=== PATIENT | male | born 2000 | race Caucasian/White ===

== ENCOUNTER 2021-02-15 22:10 | Emergency (ER) | payer OTHER, SELFPAY ==
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
[2021-02-15 22:05] VITALS: BP 110/70; PULSE 101; RESP 16; TEMP 36.6; O2SAT 98; BMI 25.2
--- NOTE | 2021-02-15 22:08 | [facility].EDGENADL ---
ED Disposition Clinical Impression: Laceration Contusion of right knee Qualifiers: Encounter type: initial encounter Qualified Code(s): S80.01XA - Contusion of right knee, initial encounter Patellar tendon strain Qualifiers: Encounter type: initial encounter Laterality: right Qualified Code(s): S86.811A - Strain of other muscle(s) and tendon(s) at lower leg level, right leg, initial encounter Disposition: Home, Self-Care Condition on Discharge: Fair Instructions: Knee Sprain, DI for Knee Sprain, DI for Knee Pain Additional Instructions: You have been evaluated for traumatic right knee injury. Diagnosed with a partial patellar tendon rupture and a knee sprain. Keep knee wrapped for comfort. Use elevation. Tylenol and Motrin for pain. [place] for extreme pain. Use crutches if needed. Follow-up with your primary care doctor in 24 to 48 hours. Follow-up with an orthopedist. Have sutures removed in 7 to 10 days. Keep wound clean, dry, intact. You may shower in 24 hours. Return to the emergency department for any new or worsening symptoms Prescriptions: Hydrocod/Acet 5/325 mg [[place] 5/325mg tablet] 1 tab PO Q6HP PRN #12 tab PRN Reason: Severe Pain Transmission Status: Received by ALINA Lan Time of Disposition: 00:07 - Critical Care Critical Care Time: No Attestation: On , the high probability of a clinically significant, sudden or life threatening deterioration of the following system(s) required my full and direct attention, intervention and personal management. The time I documented below is in addition to time spent performing reported procedures but includes the following listed in this critical care notation. Medical Decision Making - Medical Records Medical records reviewed: Yes: I reviewed the patient's medical records. - [place] Inquiry Pt receiving controlled substance: No Vital Signs: 02/15/21 22:05 02/15/21 22:34 02/15/21 23:00 Temperature 97.8 F Temperature Source Oral Pulse Rate 91 H 84 Pulse Rate [Right Brachial] 101 H Respiratory Rate 16 20 20 Blood Pressure 117/62 101/60 L Blood Pressure [Right Arm] 110/70 Blood Pressure Mean 77 73 Blood Pressure Mean [Right Arm] 83 Blood Pressure Source [Right Arm] Automatic Cuff Blood Pressure Position [Right Arm] Sitting 02 Sat by Pulse Oximetry 98 99 98 Oxygen Delivery Method Room Air 02/15/21 23:30 Temperature Temperature Source Pulse Rate 77 Pulse Rate [Right Brachial] Respiratory Rate 20 Blood Pressure 122/60 Blood Pressure [Right Arm] Blood Pressure Mean 76 Blood Pressure Mean [Right Arm] Blood Pressure Source [Right Arm] Blood Pressure Position [Right Arm] 02 Sat by Pulse Oximetry 96 Oxygen Delivery Method Orders (Tests/Meds): ED MEDICATIONS Discontinued Medications Generic Name Dose Route Start Last Admin Trade Name Claudia PRN Reason Stop Dose Admin Hydrocodone Bitart/Acetaminophen 1 tab 02/15/21 22:12 02/15/21 22:27 Hydrocodone/Apap 5/325 Mg Tablet PO 02/15/21 22:13 1 tab ONCE ONE Administration Lidocaine HCl 5 ml 02/15/21 23:43 Lidocaine 1% 10ml Mdv SQ 02/15/21 23:44 ONCE ONE Tetanus/Reduced Diphtheria/Acell Pertussis 0.5 ml 02/15/21 22:12 Tet/Diphth/Pert-Adult 0.5ml Syringe IM 02/15/21 22:13 .ONCE ONE Medical Decision Narrative: In summary this is a previously healthy 20-year-old male presenting to the emergency department with an injury to his right knee. Patient clinically stable on arrival. Vital signs within normal limits. Concern for patella fracture, tibia fracture, contusion. Will obtain x-rays of the right knee, tib-fib. Tdap updated. X-rays show no fracture. There is soft tissue swelling anterior to the tibia. This is consistent with his area of tenderness. Concern for partial patellar tendon rupture. He is able to extend his right lower leg and raise his leg off of the bed. Doubt complete tendon rupture. Laceration
[2021-02-15 22:34] VITALS: BP 117/62; PULSE 91; RESP 20; O2SAT 99
[2021-02-15 23:00] VITALS: BP 101/60; PULSE 84; RESP 20; O2SAT 98
[2021-02-15 23:30] VITALS: BP 122/60; PULSE 77; RESP 20; O2SAT 96
[2021-02-16 00:16] VITALS: BP 123/70; PULSE 73; RESP 16; TEMP 36.8; O2SAT 98
== END 2021-02-16 00:32 | disposition home or self-care (01) ==
PROVIDERS: Emergency Provider Emergency Medicine
DX: S86.811A Strain of other muscle(s) and tendon(s) at lower leg level, right leg, initial encounter (principal); S80.01XA Contusion of right knee, initial encounter; S81.011A Laceration without foreign body, right knee, initial encounter; V49.3XXA Car occupant (driver) (passenger) injured in unspecified nontraffic accident, initial encounter; Y92.89 Other specified places as the place of occurrence of the external cause; Z23 Encounter for immunization
CPT/HCPCS: 12001; 73562; 73590; 90471; 99282